=== PATIENT | male | born 1990 | race Caucasian/White ===

== ENCOUNTER 2024-05-12 19:55 | Emergency (ER) | payer MEDICAID, OTHER, SELFPAY ==
[~2024-05-12] VITALS: Ht 182.9 cm; Wt 90.9 kg
[2024-05-13] MEDS ORDERED: ISOVUE-370 76% 100ML VIAL As Ordered ONE (00:23)
[2024-05-13] MEDS: ONDANSETRON 4MG 2ML VIAL IV ONE (00:52)
[2024-05-13] MEDS: MORPHINE 4 MG/ML 1ML VIAL IV PRN (00:52)
[2024-05-13 01:04] LABS: BASO % 0.2 % (0.0-1.0); EOS % 0.2 % (0.0-3.0); HEMOGLOBIN 14.1 g/dl (13.5-17.5); LYMPH # 1.8 10^3/uL (1.5-5.0); LYMPH % 15.1 % (24.0-44.0); MEAN CORPUSCULAR HEMOGLOBIN 27.5 pg (27.0-33.0); MEAN CORPUSCULAR HGB CONC 33.6 g/dl (32.0-36.5); MEAN CORPUSCULAR VOLUME 81.9 fl (80.0-96.0); MONO # 0.8 10^3/uL (0.0-0.8); MONO % 6.9 % (2.0-8.0); NEUTROPHILS # 9.4 10^3/uL (1.5-8.5); NEUTROPHILS % 77.4 % (36.0-66.0); PLATELET COUNT, AUTOMATED 363 10^3/uL (150-450); RED BLOOD COUNT 5.13 10^6/uL (4.30-6.10); WHITE BLOOD COUNT 12.2 10^3/uL (4.0-10.0)
[2024-05-13 01:08] LABS: ERYTHROCYTE SEDIMENTATION RATE 57 mm/hr (0-15)
[2024-05-13 01:26] LABS: BLOOD UREA NITROGEN 16 MG/DL (9-23); C REACTIVE PROTEIN QUANTITATIV 10.68 MG/DL (<1.0); CALCIUM LEVEL 9.7 MG/DL (8.5-10.1); CARBON DIOXIDE LEVEL 30 MMOL/L (20-31); CHLORIDE LEVEL 101 MMOL/L (98-107); CREATININE FOR GFR 0.91 MG/DL (0.70-1.30); GLOMERULAR FILTRATION RATE > 60.0 (>60); GLUCOSE, FASTING 86 MG/DL (60-100); POTASSIUM SERUM 3.9 MMOL/L (3.5-5.1); SODIUM LEVEL 138 MMOL/L (136-145)
[2024-05-13 01:33] LABS: PROCALCITONIN <0.04 ng/ml
[2024-05-13] MEDS ORDERED: MEROPENEM INJ 2 GM in NS 100 ML IV ONE (02:50)
[2024-05-13] MEDS: MEROPENEM INJ 1 GM in IV 1 EA IV SCH (03:10)
[2024-05-13] MEDS: LIDOCAINE W/EPINEPHRINE 1% 20ML VIAL SC ONE (03:28)
[2024-05-13] MEDS: HYDROMORPHONE HCL 0.5 MG/ 0.5 ML SYRINGE IV PRN (03:35)
[2024-05-13 03:41] LABS: HIV 1&2 SCREEN NEGATIVE (NEGATIVE)
[2024-05-13] MEDS ORDERED: MOXI400T11 PO (03:52)
[2024-05-13 05:09] VITALS: BP 137/88; TEMP 97.1; O2SAT 96
== END 2024-05-13 05:12 | disposition home or self-care (01) ==
LOC: M ED 19:55
DX: K61.1 Rectal abscess (principal); K50.90 Crohn's disease, unspecified, without complications; F17.200 Nicotine dependence, unspecified, uncomplicated; F12.10 Cannabis abuse, uncomplicated; F10.10 Alcohol abuse, uncomplicated; Z79.2 Long term (current) use of antibiotics; Z88.0 Allergy status to penicillin
CPT/HCPCS: 74177; 80048; 83605; 84145; 85025; 85652; 86140; 87040; 87389; 96365; 96366; 96375; 96376; 99284; J1171; J2184; J2405; Q9967

== ENCOUNTER 2024-07-27 02:35 | Inpatient (IN) | payer OTHER, SELFPAY ==
[~2024-07-27] VITALS: Ht 182.9 cm; Wt 87.9 kg
[~2024-07-27 02:35] MED LIST: MOXI400T11 PO
[2024-07-27] MEDS: ACETAMINOPHEN *IV* 1,000 MG in IV 1 EA IV ONE ×2 (06:24→20:13)
[2024-07-27] MEDS: ONDANSETRON 4MG 2ML VIAL IV ONE ×2 (06:24→07:43)
[2024-07-27 06:32] LABS: BASO # 0.1 10^3/uL (0.0-0.2); BASO % 0.4 % (0.0-1.0); EOS % 0.1 % (0.0-3.0); HEMATOCRIT 53.4 % (42.0-52.0); HEMOGLOBIN 17.9 g/dl (13.5-17.5); LYMPH # 1.4 10^3/uL (1.5-5.0); LYMPH % 7.8 % (24.0-44.0); MEAN CORPUSCULAR HEMOGLOBIN 28.1 pg (27.0-33.0); MEAN CORPUSCULAR HGB CONC 33.5 g/dl (32.0-36.5); MONO # 0.8 10^3/uL (0.0-0.8); MONO % 4.4 % (2.0-8.0); NEUTROPHILS % 86.8 % (36.0-66.0); PLATELET COUNT, AUTOMATED 351 10^3/uL (150-450); RED BLOOD COUNT 6.36 10^6/uL (4.30-6.10); WHITE BLOOD COUNT 18.5 10^3/uL (4.0-10.0)
[2024-07-27] MEDS: GASTROGRAFIN SOLUTION 30ML PO SCH (06:47)
[2024-07-27 06:50] LABS: INR 0.91; PARTIAL THROMBOPLASTIN TIME 32.3 SECONDS (24.8-34.2); PROTHROMBIN TIME 12.6 SECONDS (12.5-14.5)
[2024-07-27 07:18] LABS: LIPASE 27 U/L (12-53)
[2024-07-27 07:20] LABS: ALBUMIN 4.2 G/DL (3.2-5.2); ALKALINE PHOSPHATASE 107 U/L (40-129); ALT/SGPT 20 U/L (7.0-40); AST/SGOT 21 U/L (<34); BILIRUBIN,TOTAL 0.8 MG/DL (0.3-1.2); BLOOD UREA NITROGEN 15 MG/DL (9-23); CALCIUM LEVEL 10.3 MG/DL (8.5-10.1); CARBON DIOXIDE LEVEL 28 MMOL/L (20-31); CHLORIDE LEVEL 98 MMOL/L (98-107); GLOMERULAR FILTRATION RATE > 60.0 (>60); GLUCOSE, FASTING 85 MG/DL (60-100); POTASSIUM SERUM 4.2 MMOL/L (3.5-5.1); SODIUM LEVEL 137 MMOL/L (136-145); TOTAL PROTEIN 8.4 G/DL (5.7-8.2)
[2024-07-27] MEDS ORDERED: ISOVUE-370 76% 100ML VIAL As Ordered ONE (07:32)
[2024-07-27] MEDS: MORPHINE 4 MG/ML 1ML VIAL IV ONE ×2 (07:43→15:56)
[2024-07-27] MEDS: NS (Normal Saline) 0.9% 1,000 ML IV ONE ×2 (07:43→09:15)
[2024-07-27] MEDS ORDERED: [UNRECOGNIZED DRUG - OTHER] IV ONE (09:45)
[2024-07-27] MEDS ORDERED: NS 0.9% IV ONE (09:45)
[2024-07-27] MEDS: MORPHINE 4 MG/ML 1ML VIAL IV PRN (11:27)
[2024-07-27] MEDS: LevoFLOXacin IV 750 MG in IV 1 EA IV ONE (11:27)
[2024-07-27 11:40] LABS: KETONE, URINE AUTO RFX 1+ mg/dL (NEGATIVE); LEUKOCYTE ESTERASE UR AUTO RFX NEGATIVE (NEGATIVE); MUCUS, URINE RFX SMALL (NEGATIVE); NITRITE, URINE AUTO RFX NEGATIVE (NEGATIVE); RBC, URINE AUTO RFX 1 /HPF (0-3); SQUAM EPITHELIAL CELL UR AURFX 0 /HPF (0-6); WBC, URINE AUTO RFX 2 /HPF (0-3)
[2024-07-27] MEDS ORDERED: HOME MED LIST COMPLETE! XX SCH ×2 (11:40)
[2024-07-27] MEDS ORDERED: MOM 30ML SUSPENSION UDC PO PRN (12:15)
[2024-07-27] MEDS ORDERED: ACETAMINOPHEN 325 MG TAB PO PRN (12:15)
[2024-07-27] MEDS ORDERED: KETOROLAC 30 MG/ML 1ML VIAL IV PRN (12:15)
[2024-07-27] MEDS: KETOROLAC 30 MG/ML 1ML VIAL IV PRN (13:08)
[2024-07-27] MEDS: LR 1,000 ML IV SCH (13:08)
[2024-07-27 13:18] LABS: C REACTIVE PROTEIN QUANTITATIV 0.53 MG/DL (<1.0)
[2024-07-27 13:28] LABS: ERYTHROCYTE SEDIMENTATION RATE 20 mm/hr (0-15)
[2024-07-27 13:30] LABS: PROCALCITONIN <0.04 ng/ml
[2024-07-27] MEDS: methylPREDNISolone 125MG 2ML VIAL IV SCH (15:55)
[2024-07-27] MEDS: ONDANSETRON 4MG 2ML VIAL IV PRN (15:55)
[2024-07-27 17:33] LABS: BARBITURATES URINE NEGATIVE (NEGATIVE); BENZODIAZEPINES URINE NEGATIVE (NEGATIVE); COCAINE METABOLITE URINE NEGATIVE (NEGATIVE); METHADONE URINE NEGATIVE (NEGATIVE); PHENCYCLIDINE URINE NEGATIVE (NEGATIVE)
[2024-07-27 17:34] LABS: AMPHETAMINES LEVEL URINE POSITIVE (NEGATIVE); CANNABINOIDS URINE POSITIVE (NEGATIVE); OPIATES URINE POSITIVE (NEGATIVE)
[2024-07-27 19:30] VITALS: BP 142/92; O2SAT 98
[2024-07-27] MEDS: MORPHINE 2 MG/ML 1ML VIAL IV PRN (20:14)
[2024-07-27] MEDS ORDERED: DOCUSATE SODIUM 100MG CAPSULE PO SCH (21:00)
[2024-07-28 00:34] VITALS: BP 134/80; TEMP 97.2; O2SAT 96
[2024-07-28] MEDS: ACETAMINOPHEN *IV* 1,000 MG in IV 1 EA IV ONE (02:14)
[2024-07-28] MEDS: KETOROLAC 30 MG/ML 1ML VIAL IV ONE (02:15)
[2024-07-28 02:40] VITALS: BP 130/81; TEMP 98.9; O2SAT 98
[2024-07-28 08:30] VITALS: BP 133/84; TEMP 98.1; O2SAT 98
[2024-07-28] MEDS: ACETAMINOPHEN 500 MG TAB PO SCH (08:55)
[2024-07-28] MEDS: KETOROLAC 30 MG/ML 1ML VIAL IV SCH (08:56)
[2024-07-28 12:28] VITALS: BP 134/76; TEMP 98; O2SAT 98
[2024-07-28] MEDS: LR 1,000 ML IV SCH (15:59)
[2024-07-28 17:05] VITALS: BP 149/86; TEMP 97.6; O2SAT 97
[2024-07-28 19:50] VITALS: BP 143/78; TEMP 98.6; O2SAT 97
[2024-07-29 03:55] VITALS: BP 136/83; TEMP 98; O2SAT 98
[2024-07-29] MEDS: BISACODYL 10MG SUPP XX SCH (07:47)
[2024-07-29 10:19] LABS: HEMATOCRIT 41.3 % (42.0-52.0); HEMOGLOBIN 13.8 g/dl (13.5-17.5); MEAN CORPUSCULAR HEMOGLOBIN 27.9 pg (27.0-33.0); MEAN CORPUSCULAR HGB CONC 33.4 g/dl (32.0-36.5); MEAN CORPUSCULAR VOLUME 83.4 fl (80.0-96.0); PLATELET COUNT, AUTOMATED 260 10^3/uL (150-450); RED BLOOD COUNT 4.95 10^6/uL (4.30-6.10); WHITE BLOOD COUNT 8.5 10^3/uL (4.0-10.0)
[2024-07-29 10:45] LABS: BLOOD UREA NITROGEN 10 MG/DL (9-23); CALCIUM LEVEL 8.7 MG/DL (8.5-10.1); CARBON DIOXIDE LEVEL 27 MMOL/L (20-31); CHLORIDE LEVEL 105 MMOL/L (98-107); CREATININE FOR GFR 0.78 MG/DL (0.70-1.30); GLOMERULAR FILTRATION RATE > 60.0 (>60); GLUCOSE, FASTING 103 MG/DL (60-100); POTASSIUM SERUM 3.6 MMOL/L (3.5-5.1); SODIUM LEVEL 140 MMOL/L (136-145)
[2024-07-29 12:00] VITALS: BP 143/90; TEMP 97.8; O2SAT 96
[2024-07-29 21:25] VITALS: BP 117/58; TEMP 98.1; O2SAT 97
[2024-07-29 21:29] VITALS: BP 138/90; TEMP 98.9; O2SAT 97
[2024-07-30 04:12] VITALS: BP 124/69; TEMP 98.6; O2SAT 97
[2024-07-30] MEDS: oxyCODONE 5MG TAB PO PRN (07:44)
[2024-07-30] MEDS ORDERED: PRED10TA2 PO (10:20)
[2024-07-30] MEDS ORDERED: BISA10SU XX (10:20)
== END 2024-07-30 13:30 | disposition home or self-care (01) | DRG 245 ==
LOC: M ED 02:35 → M ED INP 12:14 → M PED 07-28 02:36 → M MS4PR 07-28 17:00
PROVIDERS: ADMIT Student in an Organized Health Care Education/Training Program; ATTEND Student in an Organized Health Care Education/Training Program
DX: K50.918 Crohn's disease, unspecified, with other complication (principal); D72.829 Elevated white blood cell count, unspecified; Z93.2 Ileostomy status; F12.90 Cannabis use, unspecified, uncomplicated; Z88.0 Allergy status to penicillin

== ENCOUNTER 2025-04-05 17:12 | Emergency (ER) | payer OTHER ==
[~2025-04-05] VITALS: Ht 188 cm; Wt 91.5 kg
[~2025-04-05 17:12] MED LIST changes: +BISA10SU XX; +PRED10TA2 PO
[2025-04-05 18:39] VITALS: BP 127/73; TEMP 97.5; O2SAT 98
== END 2025-04-05 18:42 | disposition home or self-care (01) ==
LOC: M ED 17:12
DX: K94.19 Other complications of enterostomy (principal); Z79.52 Long term (current) use of systemic steroids; Z79.899 Other long term (current) drug therapy; Z88.0 Allergy status to penicillin